=== PATIENT | female | born 1960 | race Caucasian/White ===

== ENCOUNTER → 2018-01-26 | Outpatient (CLI) | payer OTHER ==
--- NOTE | 2018-02-01 08:52 | Diagnostic Imaging Report ---
#[id number] - MGSCRBIL #BILATERAL DIGITAL SCREENING MAMMOGRAM WITH CAD: 01/26/2018 CLINICAL: Routine screening. Comparison is made to exams dated: 03/09/2017 mammogram, 03/09/2017 ultrasound and 02/26/2017 There are scattered fibroglandular elements in both breasts. Current study was also evaluated with a Computer Aided Detection (CAD) system. There are benign calcifications in both breasts. No significant masses, calcifications, or other findings are seen in either breast. There has been no significant interval change. IMPRESSION: BENIGN There is no mammographic evidence of malignancy. A 1 year screening mammogram is recommended. The patient will be notified by letter of the results. Taran pittman/carey:01/31/2018 09:00:13 Customer Service Representative Teller: Essence HILLIARD)([place]), [facility] letter sent: Compared to Prior B9 Mammogram BI-RADS: 2 Benign
== END ==
LOC: MAMMO 09:49
PROVIDERS: ATTEND Internal Medicine
DX: Z12.31 Encounter for screening mammogram for malignant neoplasm of breast (principal)
CPT/HCPCS: 77067

== ENCOUNTER 2018-05-10 19:44 | Emergency (ER) | payer OTHER ==
[~2018-05-10] VITALS: Ht 165.1 cm; Wt 78.5 kg
--- NOTE | 2018-05-10 23:17 | Diagnostic Imaging Report ---
EXAMINATION: Head CT without contrast. HISTORY:Status post fall. COMPARISON:None. TECHNIQUE: Multidetector axial images were obtained from the foramen magnum to the vertex without contrast. The images were reconstructed using brain and bone algorithms. Thin section brain images were reformatted into coronal and sagittal planes. Intravenous contrast: None IMAGE QUALITY: Acceptable. FINDINGS: Skull/scalp: No lytic or blastic. lesions. No surgical changes. Parenchyma: No abnormal density. No acute hemorrhage, mass or acute major vascular territorial infarct. Arteries: No density suggestive of thrombosis. Dural sinuses: No abnormal density suggestive of thrombosis. Ventricles: No hydrocephalus or displacement. Extra-axial spaces: No abnormal density. Brain volume: Moderate generalized cerebral volume loss. Craniocervical junction: No mass, Chiari malformation, or basilar invagination. Sella: No mass. Paranasal/mastoid sinuses: Imaged portions unremarkable. IMPRESSION: No acute intracranial abnormality. Moderate generalized cerebral volume loss, advanced for patient's given age. Signed by: Dr. Roz Faust M.D. on 05/10/2018 11:14 PM
--- NOTE | 2018-05-10 23:21 | Diagnostic Imaging Report ---
History: Status post fall. Comparison studies: None Technique: Axial images were obtained through the cervical region.. Coronal and sagittal images reconstructed from the axial data.. Intravenous contrast: None Findings: Fractures: None. Soft tissue injuries: None. Atlantoaxial articulation: Intact. Alignment: Normal lordosis. No scoliosis. Cervicomedullary junction: No abnormalities. The foramen magnum is patent. Soft tissues: No abnormalities. Vertebrae: No fractures, infection or neoplasm. Degenerative changes: None. IMPRESSION: 1. No acute cervical spine abnormalities. 2. Ligament, spinal cord and or vascular abnormalities cannot be excluded on the basis of this examination. Signed by: Dr. Roz Faust M.D. on 05/10/2018 11:17 PM
--- NOTE | 2018-05-11 | Diagnostic Imaging Report ---
Exam: AP view of the chest and bilateral rib series Indication: Slipped and fell, bilateral ribs and back pain Comparison: None Findings: The lungs are clear. No pleural effusions or pneumothorax. The heart is within normal size limits. No evidence of an acute rib fracture. Impression: No evidence of a rib fracture. Signed by: Dr. Billie Dobbins M.D. on 05/10/2018 11:57 PM
--- NOTE | 2018-05-11 00:02 | Diagnostic Imaging Report ---
EXAM: lumbar spine, 3 views, AP, lateral and coned lateral view INDICATION: Fall, back pain COMPARISON: None FINDINGS: BONES: Five lumbar-type vertebral bodies. The alignment is within normal limits. No acute displaced fractures. No lytic or blastic lesions. DISCS: The disc-spaces are well-maintained. JOINTS: The facet joints and sacroiliac joints are unremarkable. SOFT TISSUES: Unremarkable IMPRESSION: No acute lumbar spine radiographic findings. Signed by: Dr. Billie Dobbins M.D. on 05/10/2018 11:59 PM
--- NOTE | 2018-05-11 00:03 | Diagnostic Imaging Report ---
EXAM: THORACIC SPINE 2VW, AP and lateral DATE: 05/10/2018 9:19 PM Time stamp on exam: 2312 hours INDICATION: Fall, back pain COMPARISON: None FINDINGS: BONES: The alignment is within normal limits. No acute displaced fractures. No lytic or blastic lesions. DISCS: The disc-spaces are well-maintained. JOINTS: The facet joints are unremarkable. SOFT TISSUES: Unremarkable IMPRESSION: No acute thoracic spine radiographic findings. Signed by: Dr. Billie Dobbins M.D. on 05/11/2018 12:00 AM
[2018-05-11 00:21] VITALS: BP 113/71
== END 2018-05-11 00:30 | disposition home or self-care (01) ==
LOC: ER 19:44
DX: S00.83XA Contusion of other part of head, initial encounter (principal); R51 Headache; S30.1XXA Contusion of abdominal wall, initial encounter; S30.0XXA Contusion of lower back and pelvis, initial encounter; S20.221A Contusion of right back wall of thorax, initial encounter; S16.1XXA Strain of muscle, fascia and tendon at neck level, initial encounter; S39.012A Strain of muscle, fascia and tendon of lower back, initial encounter; W01.0XXA Fall on same level from slipping, tripping and stumbling without subsequent striking against object, initial encounter; Y92.008 Other place in unspecified non-institutional (private) residence as the place of occurrence of the external cause
CPT/HCPCS: 70450; 71111; 72070; 72100; 72125; 99283

== ENCOUNTER → 2018-08-17 | Day surgery (SDC) | payer OTHER ==
[~2018-08-17] VITALS: Ht 165.1 cm; Wt 83.5 kg
[~2018-08-17] MED LIST: FENTANYL CITRATE/PF 100MCG/2 ML INJ ONE; MIDAZOLAM HCL 2 MG/2 ML VIAL ONE; PROPOFOL IV EMULSION 10 MG/ML 50 ML VIAL ONE; SIMPLY SALINE; [UNRECOGNIZED DRUG - OTHER] TOP
--- OUTSIDE RECORDS SUMMARY | 2018-08-17 07:02 | XMS REPORT | Clinical Summary ---
Author Author [facility] Address Unknown Phone Unavailable Care Team Providers Care Practice Director Name Role Phone Asked, No Pcp PCP Unavailable Allergies Active Allergy Reactions Severity Noted Date Comments Caffeine Other (See Comments) 02/23/2017 CAUSES UTI Histabid Other (See Comments) 02/23/2017 "TURN GREEN" Auewjdhs-Vjivqbxszi-Synoz Other (See Comments) 02/23/2017 REDNESS IN EYES yxin Current Medications Prescription Sig. Disp. Refills Start End Date Status Date phentermine 37.5 MG Take 37.5 mg by mouth Active capsule every morning. acyclovir (ZOVIRAX) 400 Take 400 mg by mouth Active MG tablet every 4 (four) hours while awake. FOLIC Take by mouth. Active ACID/MULTIVIT-MIN/LUTEIN (CENTRUM SILVER ORAL) ASCORBATE CALCIUM Take by mouth. Active (VITAMIN C ORAL) SENNOSIDES (SENOKOT ORAL) Take by mouth. Active meclizine (ANTIVERT) 25 Take 1 tablet (25 mg 30 tablet 0 06/23/20 07/23/20 mg tablet total) by mouth 3 (three) 18 18 times a day as needed for dizziness for up to 30 days. Active Problems No known active problems Encounters Date Type Specialty Care Team Description 06/23/2018 Emergency Emergency Medicine Oswaldo Diaz Vertigo (Primary Dx); - MD Fabricio Dizziness 06/24/2018 06/23/2018 Procedure Pass Emergency Medicine after 08/16/2017 Family History Medical History Relation Name Comments Colon cancer Father Relation Name Status Comments Father Mother Alive SPASTIC COLON Social History Tobacco Use Types Packs/Day Years Used Date Former Smoker Smokeless Tobacco: Never Used Comments: QUIT 09/2011 Alcohol Use Drinks/Week oz/Week Comments Yes RARE Sex Assigned at Date Recorded Not on file Last Filed Vital Signs Vital Sign Reading Time Taken Blood Pressure 127/58 06/24/2018 12:56 AM CDT Pulse 87 06/24/2018 12:56 AM CDT Temperature 36.8 C (98.2 F) 06/23/2018 4:45 PM CDT Respiratory Rate 16 06/24/2018 12:56 AM CDT Oxygen Saturation 95% 06/24/2018 12:56 AM CDT Inhaled Oxygen - - Concentration Weight - - Height 165.1 cm (5' 5") 06/23/2018 4:45 PM CDT Body Mass Index - - Plan of Treatment Health Maintenance Due Date Last Done Comments COLON CANCER SCREENING 2011 SHINGRIX VACCINE (#1) 2011 INFLUENZA VACCINE 05/17/2018 BREAST CANCER SCREENING 03/04/2019 03/04/2017 CERVICAL CANCER SCREENING 02/24/2020 02/23/2017 Procedures Procedure Name Priority Date/Time Associated Diagnosis Comments MRI BRAIN WO CONTRAST STAT 06/24/2018 Results for this 12:11 AM CDT procedure are in the results section. CT HEAD WO CONTRAST STAT 06/23/2018 Results for this 6:48 PM CDT procedure are in the results section. URINALYSIS SCREEN AND STAT 06/23/2018 Results for this MICROSCOPY, WITH REFLEX 6:00 PM CDT procedure are in the TO CULTURE results section. GRAM STAIN STAT 06/23/2018 Results for this 6:00 PM CDT procedure are in the results section. URINE CULTURE STAT 06/23/2018 Results for this 6:00 PM CDT procedure are in the results section. ZZESTIMATED GFR STAT 06/23/2018 Results for this 5:30 PM CDT procedure are in the results section. COMPREHENSIVE METABOLIC STAT 06/23/2018 Results for this PANEL 5:30 PM CDT procedure are in the results section. HC COMPLETE BLD COUNT STAT 06/23/2018 Results for this W/AUTO DIFF 5:30 PM CDT procedure are in the results section. ECG ED PRELIMINARY Routine 06/23/2018 Results for this INTERPRETATION 5:13 PM CDT procedure are in the results section. ECG 12-LEAD STAT 06/23/2018 Results for this 4:45 PM CDT procedure are in the results section. after 08/16/2017 Results * MRI Brain Wo Contrast (06/24/2018 12:11 AM) Narrative Performed At EXAMINATION:MRI BRAIN WO CONTRAST [facility] CLINICAL HISTORY:vertigo COMPARISON: CT brain dated 06/23/2018. FINDINGS: Noncontrast MRI of the brain is interpreted. Diffusion imaging demonstrates no abnormal restricted diffusion. The brain is normal in morphology and in signal intensity. No extra-axial collection or mass effect is seen. No hemorrhage is identified. The major vascular flow-voids are preserved. IMPRESSION: No evidence of recent infarct or other acute intracranial abnormality. [id number] Procedure Note Interface, Radiology Results - 06/24/2018 12:18 AM CDT EXAMINATION: MRI BRAIN WO CONTRAST CLINICAL HISTORY: vertigo COMPARISON: CT brain dated 06/23/2018. FINDINGS: Noncontrast MRI of the brain is interpreted. Diffusion imaging demonstrates no abnormal restricted diffusion. The brain is normal in morphology and in signal intensity. No extra-axial collection or mass effect is seen. No hemorrhage is identified. The major vascular flow-voids are preserved. IMPRESSION: No evidence of recent infarct or other acute intracranial abnormality. [id number] Performing Organization Address City/State/Zipcode Phone Number [facility] [address] [place] [address] * CT Head Wo Contrast (06/23/2018 6:48 PM) Narrative Performed At EXAMINATION: CT HEAD WO CONTRAST [facility] CLINICAL HISTORY: MERINO COMPARISON:None. TECHNIQUE: Noncontrast enhanced images of the brain were obtained from the skull base to the vertex. Both soft tissue and bone reconstruction algorithms were performed. CT scans are performed using radiation dose reduction techniques (iterative reconstruction and/or automated exposure control). Technical factors are evaluated and adjusted to ensure appropriate moderation of exposure. Automated dose management technology is applied to adjust radiation exposure while achieving a diagnostic quality image. FINDINGS: Mild age-related brain parenchymal volume loss. Nonspecific hypoattenuation of the supratentorial white matter, likely chronic microangiopathic changes. Mild cerebrovascular calcifications. The brain parenchyma is otherwise unremarkable. The evans-white matter differentiation is preserved. No evidence of acute intra or extra-axial hemorrhage, mass, mass effect or acute territorial infarction. There is no acute hydrocephalus. Basal cisterns are patent. No acute soft tissue hematoma or laceration. No skull fractures or aggressive bony lesions. Paranasal sinuses and mastoid air cells are clear. Orbits are normal. IMPRESSION: No acute intracranial abnormality identified. [facility]-[id number] Procedure Note Interface, Radiology Results - 06/23/2018 6:56 PM CDT EXAMINATION: CT HEAD WO CONTRAST CLINICAL HISTORY: MERINO COMPARISON: None. TECHNIQUE: Noncontrast enhanced images of the brain were obtained from the skull base to the vertex. Both soft tissue and bone reconstruction algorithms were performed. CT scans are performed using radiation dose reduction techniques (iterative reconstruction and/or automated exposure control). Technical factors are evaluated and adjusted to ensure appropriate moderation of exposure. Automated dose management technology is applied to adjust radiation exposure while achieving a diagnostic quality image. FINDINGS: Mild age-related brain parenchymal volume loss. Nonspecific hypoattenuation of the supratentorial white matter, likely chronic microangiopathic changes. Mild cerebrovascular calcifications. The brain parenchyma is otherwise unremarkable. The evans-white matter differentiation is preserved. No evidence of acute intra or extra-axial hemorrhage, mass, mass effect or acute territorial infarction. There is no acute hydrocephalus. Basal cisterns are patent. No acute soft tissue hematoma or laceration. No skull fractures or aggressive bony lesions. Paranasal sinuses and mastoid air cells are clear. Orbits are normal. IMPRESSION: No acute intracranial abnormality identified. [facility]-[id number] Performing Organization Address City/State/Zipcode Phone Number [facility] [address] [place] [address] * Urinalysis screen and microscopy, with reflex to culture (06/23/2018 6:00 PM) Specimen site Clean catch [facility] DEPARTMENT OF PATHOLOGY AND GENOMIC MEDICINE Color, UA Yellow [facility] DEPARTMENT OF PATHOLOGY AND GENOMIC MEDICINE Appearance, UA Clear [facility] DEPARTMENT OF PATHOLOGY AND GENOMIC MEDICINE Specific gravity, UA 1.020 1.001 - 1.035 [facility] DEPARTMENT OF PATHOLOGY AND GENOMIC MEDICINE pH, UA 5.0 5.0 - 8.5 [facility] DEPARTMENT OF PATHOLOGY AND GENOMIC MEDICINE Protein, UA Negative Negative [facility] DEPARTMENT OF PATHOLOGY AND GENOMIC MEDICINE Glucose, UA Negative Negative [facility] DEPARTMENT OF PATHOLOGY AND GENOMIC MEDICINE Ketones, UA Negative Negative [facility] DEPARTMENT OF PATHOLOGY AND GENOMIC MEDICINE Bilirubin, UA Negative Negative [facility] DEPARTMENT OF PATHOLOGY AND GENOMIC MEDICINE Blood, UA Negative Negative [facility] DEPARTMENT OF PATHOLOGY AND GENOMIC MEDICINE Nitrite, UA Negative Negative [facility] DEPARTMENT OF PATHOLOGY AND GENOMIC MEDICINE Urobilinogen, UA Negative <2.0 [facility] DEPARTMENT OF PATHOLOGY AND GENOMIC MEDICINE Leukocyte esterase, UA Trace (A) Negative [facility] DEPARTMENT OF PATHOLOGY AND GENOMIC MEDICINE Epithelial cells, UA Many /HPF [facility] DEPARTMENT OF PATHOLOGY AND GENOMIC MEDICINE WBC, UA 0-5 0 - 4 /HPF [facility] DEPARTMENT OF PATHOLOGY AND GENOMIC MEDICINE RBC, UA 0-5 0 - 5 /HPF [facility] DEPARTMENT OF PATHOLOGY AND GENOMIC MEDICINE Bacteria, UA Trace None seen [facility] DEPARTMENT OF PATHOLOGY AND GENOMIC MEDICINE Yeast, UA None seen [facility] DEPARTMENT OF PATHOLOGY AND GENOMIC MEDICINE Yeast with pseudohyphae, None seen [facility] DEPARTMENT OF UA PATHOLOGY AND GENOMIC MEDICINE Specimen Urine Performing Organization Address City/State/Zipcode Phone Number [facility] DEPARTMENT [address] [place] [address] PATHOLOGY AND GENOMIC MEDICINE * Gram stain (06/23/2018 6:00 PM) Gram stain result No WBC's [facility] DEPARTMENT OF Many Gram positive rods PATHOLOGY AND Comment: GENOMIC MEDICINE Specimen Information Specimen Source: Urine Specimen Site: Clean catch Specimen Urine Performing Organization Address City/State/Zipcode Phone Number [facility] DEPARTMENT OF [address] [place] [phone] PATHOLOGY AND GENOMIC MEDICINE * Urine culture (06/23/2018 6:00 PM) Urine culture isolate Mixed Gram positive paul [facility] DEPARTMENT OF 10-2 cfu/ml PATHOLOGY AND (A) GENOMIC MEDICINE Comment: Specimen Information Specimen Source: Urine Specimen Site: Clean catch Urine culture isolate Gram negative rods [facility] DEPARTMENT OF 10-1 cfu/ml PATHOLOGY AND (A) GENOMIC MEDICINE Specimen Urine Performing Organization Address City/[facility]/Zipcode Phone Number [facility] DEPARTMENT OF [address] [place] [phone] PATHOLOGY AND GENOMIC MEDICINE * Estimated GFR (06/23/2018 5:30 PM) GFR Non Af Amer >90 mL/min/1.73 m2 [facility] DEPARTMENT OF PATHOLOGY AND GENOMIC MEDICINE GFR Af Amer >90 mL/min/1.73 m2 [facility] DEPARTMENT OF Comment: PATHOLOGY AND Chronic kidney disease: <60 GENOMIC MEDICINE mL/min/1.73m2 Kidney failure: <15 mL/min/1.73m2 The estimated GFR is calculated from the IDMS-traceable Modification of Diet in Renal Disease Equation. The accuracy of the calculation is poor when the creatinine is normal. Calculated values >90 mL/min/1.73m2 are not reported. This equation has not been validated in children (<18 years), women, the elderly (>70 years), or ethnic groups other than Caucasians and Americans. Specimen Plasma specimen Performing Organization Address City/[facility]/Zipcode Phone Number [facility] [address] [place] [address] PATHOLOGY [facility] * CBC with platelet and differential (06/23/2018 5:30 PM) WBC 4.56 4.50 - 11.00 k/uL [facility] DEPARTMENT OF PATHOLOGY AND GENOMIC MEDICINE RBC 4.35 4.20 - 5.50 m/uL [facility] OF PATHOLOGY AND GENOMIC MEDICINE HGB 13.3 12.0 - 16.0 g/dL [facility] DEPARTMENT OF PATHOLOGY AND GENOMIC MEDICINE HCT 39.2 37.0 - 47.0 % [facility] DEPARTMENT OF PATHOLOGY AND GENOMIC MEDICINE MCV 90.1 82.0 - 100.0 fL [facility] DEPARTMENT OF PATHOLOGY AND GENOMIC MEDICINE MCH 30.6 27.0 - 34.0 pg [facility] DEPARTMENT OF PATHOLOGY AND GENOMIC MEDICINE MCHC 33.9 31.0 - 37.0 g/dL [facility] DEPARTMENT OF PATHOLOGY AND GENOMIC MEDICINE RDW - SD 39.4 37.0 - 55.0 fL [facility] DEPARTMENT OF PATHOLOGY AND GENOMIC MEDICINE MPV 10.7 8.8 - 13.2 fL [facility] DEPARTMENT OF PATHOLOGY AND GENOMIC MEDICINE Platelet count 175 150 - 400 k/uL [facility] DEPARTMENT OF PATHOLOGY AND GENOMIC MEDICINE Nucleated RBC 0.00 /100 WBC [facility] DEPARTMENT OF PATHOLOGY AND GENOMIC MEDICINE Neutrophils 59.9 39.0 - 69.0 % [facility] DEPARTMENT OF PATHOLOGY AND GENOMIC MEDICINE Lymphocytes 30.7 25.0 - 45.0 % [facility] DEPARTMENT OF PATHOLOGY AND GENOMIC MEDICINE Monocytes 6.1 0.0 - 10.0 % [facility] DEPARTMENT OF PATHOLOGY AND GENOMIC MEDICINE Eosinophils 2.2 0.0 - 5.0 % [facility] OF PATHOLOGY AND GENOMIC MEDICINE Basophils 0.7 0.0 - 1.0 % [facility] OF PATHOLOGY AND GENOMIC MEDICINE Specimen Blood Performing Organization Address City/[facility]/Zipcode Phone Number [facility] [address] [place] [address] PATHOLOGY [facility] [employer] MEDICINE * Comprehensive metabolic panel (06/23/2018 5:30 PM) Sodium 137 135 - 148 mEq/L [facility] PATHOLOGY AND GENOMIC MEDICINE Potassium 4.5 3.5 - 5.0 mEq/L [facility] DEPARTMENT OF PATHOLOGY AND GENOMIC MEDICINE Chloride 101 98 - 112 mEq/L [facility] DEPARTMENT OF PATHOLOGY AND GENOMIC MEDICINE CO2 26 24 - 31 mEq/L [facility] DEPARTMENT OF PATHOLOGY AND GENOMIC MEDICINE Anion gap 10@ANIO 7 - 15 mEq/L [facility] DEPARTMENT OF PATHOLOGY AND GENOMIC MEDICINE BUN 19 6 - 20 mg/dL [facility] DEPARTMENT OF PATHOLOGY AND GENOMIC MEDICINE Creatinine 0.6 0.5 - 0.9 mg/dL [facility] DEPARTMENT OF PATHOLOGY AND GENOMIC MEDICINE Glucose 105 (H) 65 - 99 mg/dL [facility] DEPARTMENT OF PATHOLOGY AND GENOMIC MEDICINE Calcium 9.1 8.3 - 10.2 mg/dL [facility] DEPARTMENT OF PATHOLOGY AND GENOMIC MEDICINE Protein 7.5 6.3 - 8.3 g/dL [facility] DEPARTMENT OF Comment: PATHOLOGY AND GENOMIC MEDICINE 4.6-7.0 g/dL 1 week 4.4-7.6 g/dL 7 months-1year 5.1-7.3 g/dL 1-2 years5.6-7 .5 g/dL >3 years6.0-8 .0 g/dL 18-150 6.3-8.3 g/dL Albumin 4.5 3.5 - 5.0 g/dL [facility] DEPARTMENT OF PATHOLOGY AND GENOMIC MEDICINE A/G ratio 1.5 0.7 - 3.8 [facility] DEPARTMENT OF PATHOLOGY AND GENOMIC MEDICINE Alkaline phosphatase 128 (H) 35 - 104 U/L [facility] DEPARTMENT OF PATHOLOGY AND GENOMIC MEDICINE AST 23 10 - 35 U/L [facility] DEPARTMENT OF PATHOLOGY AND GENOMIC MEDICINE ALT 26 5 - 50 U/L [facility] DEPARTMENT OF PATHOLOGY AND GENOMIC MEDICINE Total bilirubin 0.3 0.0 - 1.2 mg/dL [facility] DEPARTMENT OF PATHOLOGY AND GENOMIC MEDICINE Specimen Plasma specimen Performing Organization Address City/State/Zipcode Phone Number [facility] [place] [address] [place] [address] PATHOLOGY AND GENOMIC [facility] * ECG ED Preliminary Interpretation - NOT AN ORDER (06/23/2018 5:13 PM) Narrative Performed At Oswaldo Diaz MD 06/24/20181:56 PM ECG ED Preliminary Interpretation - Not an Order Performed by: OSWALDO DIAZ Authorized by: OSWALDO DIAZ ECG reviewed by ED Physician in the absence of a yard worker: yes Interpretation: Interpretation: normal Rate: ECG rate:77 ECG rate assessment: normal Rhythm: Rhythm: sinus rhythm Ectopy: Ectopy: none QRS: QRS axis:Normal Conduction: Conduction: normal ST segments: ST segments:Normal T waves: T waves: normal * ECG 12 lead (06/23/2018 4:45 PM) Ventricular rate 77 [facility] Atrial rate 77 [facility] NV interval 172 [facility] QRSD interval 86 [facility] QT interval 382 [facility] QTC interval 432 [facility] P axis 1 36 [facility] QRS axis 1 31 [facility] T wave axis 50 [facility] EKG impression Normal sinus rhythm-Normal [facility] ECG-No previous ECGs available- Performing Organization Address City/State/Zipcode Phone Number [facility] M[facility] [address] [place] [address] after 08/16/2017 Insurance Payer Benefit Subscriber ID Type Phone Address Plan / Group [employer] xxxxxxxxxx Exchange [employer] [place] [address]
--- OUTSIDE RECORDS SUMMARY | 2018-08-17 07:02 | XMS REPORT | Continuity of Care Document ---
Author Author [facility] Organization Interface Address Unknown Phone Unavailable Problems Problem Status Onset Date Classification Date Reported Comments Source Z12.31 - ENCNTR SCREEN MAMMOGRAM FOR MA Active 02/24/2017 [facility] BILATERAL KNEE PAIN Active 10/17/2000 [facility] RIGHT KNEE Active [facility] TMM SURGERY Active [facility] M25.561 Active [facility] M23.304 Active [facility] Medications Medication Details Route Status Patient Instructions Ordering Provider Order Date Source Allergies, Adverse Reactions, Alerts Substance Category Reaction Severity Reaction type Status Date Reported Comments Source Immunizations Immunization Date Given Site Status Last Updated Comments Source Results Order Name Results Value Reference Range Date Interpretation Comments Source Breast Complete Anton US Breast Complete Anton US - BREAST COMPLETE ANTON US ULTRASOUND OF LEFT BREAST: 03/09/2017 CLINICAL: HISTORY: 56 yo female with focal aymmetry questioned in the LEFT breast on screening mammogram 02/26/17. No personal or family history of breast cancer. 2D digital mammographic images and 3D digital tomosynthesis images were obtained in the CC and MLO projections. Comparison is made to exams dated: 02/26/2017 mammogram, 10/23/2015 mammogram, 10/23/2015 ultrasound, 10/06/2015 mammogram, 10/14/2014 mammogram and 10/04/2013 mammogram - [facility]. RIGHT BREAST FINDINGS: The entire right breast was evaluated including all four quadrants, axillary tail, subareolar region and axilla. Subcentimeter cyst noted at 9:00. No abnormalities that would be suspicious for malignancy were identified. No axillary adenopathy. LEFT BREAST FINDINGS: The entire left breast was evaluated including all four quadrants, axillary tail, subareolar region and axilla. No abnormalities that would be suspicious for malignancy were identified. No axillary adenopathy. IMPRESSION: BENIGN 1. ADDITIONAL IMAGING READ IN CONJUNCTION WITH THE SCREENING MAMMOGRAM 02/26/17 SHOWED NO DEFINITE RADIOGRAPHIC OR SONOGRAPHIC EVIDENCE TO SUGGEST MALIGNANCY IN EITHER BREAST. NO SIGNIFICANT CHANGE. RECOMMENDATION: A ROUTINE SCREENING MAMMOGRAM IN ONE YEAR. The technologist discussed the findings and recommendations with the patient under my direction. Cora Williamson M.D. sg/:03/09/2017 14:50:10 Telex Operator: Lauren Kaminski, [facility] This exam was dictated and interpreted by [id number] for [facility]. letter sent: Bilateral Benign Ultrasound BI-RADS: 2 Benign 03/09/2017 - - Read by: Cora Williamson MD Dictated Date/time: 03/09/17 14:50 Electronically Signed by: Cora Wliliamson MD 03/09/17 14:50 FINAL REPORT [facility] Breast Mammo Diag UNI w berto incl CAD MA Breast Mammo Diag UNI w berto incl CAD MA - BREAST MAMMO DIAG UNI W BERTO INCL CAD MA/L UNILATERAL LEFT DIGITAL DIAGNOSTIC MAMMOGRAM 3D/2D WITH CAD: 03/09/2017 CLINICAL: HISTORY: 56 yo female with focal aymmetry questioned in the LEFT breast on screening mammogram 02/26/17. No personal or family history of breast cancer. 2D digital mammographic images and 3D digital tomosynthesis images were obtained in the CC and MLO projections. Current study was evaluated with a Computer Aided Detection (CAD) system. Comparison is made to exams dated: 02/26/2017 mammogram, 10/23/2015 mammogram, 10/23/2015 ultrasound, 10/06/2015 mammogram, 10/14/2014 mammogram and 10/04/2013 mammogram - [facility]. The tissue of the left breast is heterogeneously dense, which could obscure detection of small masses. True lateral berto view and spot compression berto view shows the density to partially efface and to have a more comparable appearance to the prior studies. No significant masses, calcifications, or other findings are seen in the breast. IMPRESSION: INCOMPLETE: NEEDS ADDITIONAL IMAGING EVALUATION PLEASE SEE SAME DAY ULTRASOUND REPORT. Cora Williamson M.D. sg/:03/09/2017 14:50:10 Telex Operator: Lauren Kaminski, [facility] This exam was dictated and interpreted by [id number] for [facility]. letter sent: Bilateral Benign Mammogram BI-RADS: 0 Indeterminate 03/09/2017 - - Read by: Cora Williamson MD Dictated Date/time: 03/09/17 14:50 Electronically Signed by: Cora Williamson MD 03/09/17 14:50 FINAL REPORT [facility] Breast Mammo Scrn ANTON incl CAD MA Breast Mammo Scrn ANTON incl CAD MA - BREAST MAMMO SCRN ANTON INCL CAD MA BILATERAL DIGITAL SCREENING MAMMOGRAM WITH CAD: 02/26/2017 CLINICAL: Routine. Patient reported breast pain and weight loss since last exam (10 to 15 pounds). No personal or known family history of breast cancer. Current study was evaluated with a Computer Aided Detection (CAD) system. Comparison is made to exams dated: 10/23/2015 mammogram, 10/23/2015 ultrasound, 10/06/2015 mammogram, 10/14/2014 mammogram, 10/04/2013 mammogram - [facility] and 03/31/2009 mammogram - [place] breast diagnostic. The tissue of both breasts is heterogeneously dense, which could obscure detection of small masses. A focal asymmetry is projected over the upper LEFT breast on the MLO view. No significant masses, calcifications, or other findings are seen in either breast. IMPRESSION: INCOMPLETE: NEEDS ADDITIONAL IMAGING EVALUATION 1. RECOMMEND A LEFT ML VIEW WITH BERTO AND A LEFT BERTO ROUND PADDLE SPOT COMPRESSION MLO VIEW. 2. ALSO, DUE TO REPORTED BREAST PAIN AT TIME OF SCREENING MAMMOGRAM AND DENSE TISSUE, RECOMMEND A BILATERAL BREAST ULTRASOUND. Cora Williamson M.D. sg/:02/28/2017 15:58:30 Telex Operator: Pascale Jay, [facility] This exam was dictated and interpreted by [id number] for [facility]. letter sent: Additional Imaging Mammogram BI-RADS: 0 Indeterminate 02/26/2017 - - Read by: Cora Williamson MD Dictated Date/time: 02/28/17 15:58 Electronically Signed by: Cora Williamson MD 02/28/17 15:58 FINAL REPORT [facility] Knee 4+ views bilat DX Knee 4+ views bilat DX EXAM: Knee 4+ views bilat HISTORY: anton knee pain COMPARISON: None Bilateral knee series demonstrates mild medial tibiofemoral joint space narrowing bilaterally. There are small bilateral joint effusions. Small patellofemoral osteophytes are noted bilaterally. The sunrise view demonstrates irregularity of the posterior medial facet of the patella bilaterally, worse on the left. Alignment is normal. There is no fracture. IMPRESSION: Degenerative change as above. 01/06/2015 - - Read by: Ramez Barrera MD Dictated Date/time: 01/06/15 14:00 Electronically Signed by: Ramez Barrera MD 01/06/15 14:01 FINAL REPORT [facility] Vital Signs Vital Sign Value Date Comments Source Encounters Location Location Details Encounter Type Encounter Number Reason For Visit Attending Provider ADM Date DC Date Status Source [facility] Outpatient [id number] Hesham [place]over 01/06/2015 01/07/2015 [facility] [place] [facility] Patients [id number] Hesham [place] 12/22/2015 01/21/2016 [facility] [place] [facility] [place] [facility] Patients [id number] Hesham [place] 02/17/2016 03/18/2016 [facility] [place] [facility] [place] [facility] [id number] Hesham Lik[place] 03/23/2016 04/22/2016 [facility] [place] [facility] [place] [facility] [id number] Hesham Likover 04/27/2016 05/27/2016 [facility] [place] [facility] [place] [facility] [id number] Hesham Lik[place] 06/01/2016 07/01/2016 [facility] [place] [facility] [place] [facility] [id number] Hesham [place] 07/06/2016 [facility] [place] [facility] [id number] Oswaldo Sanchez 02/26/2017 02/27/2017 [facility] [place] [facility] [id number] Oswaldo Sanchez 03/09/2017 03/10/2017 [facility] Procedure Code Date Perfomer Comments Source
[2018-08-17 07:10] VITALS: BP 121/78
[2018-08-17 09:53] VITALS: BP 118/65
[2018-08-17 09:55] VITALS: BP 104/73
[2018-08-17 10:00] VITALS: BP 109/63
[2018-08-17 10:30] VITALS: BP_SYST 106; BP_DIAS 71; BP_DIAS 72
== END | disposition home or self-care (01) ==
LOC: CATH LAB 06:58
PROVIDERS: ATTEND Internal Medicine
DX: I34.0 Nonrheumatic mitral (valve) insufficiency (principal); R94.31 Abnormal electrocardiogram [ECG] [EKG]; R07.9 Chest pain, unspecified
CPT/HCPCS: 93312; 93320; 93325; J2250

== ENCOUNTER → 2019-02-16 | Outpatient (CLI) | payer BC ==
[~2019-02-16] MED LIST changes: -FENTANYL CITRATE/PF 100MCG/2 ML INJ ONE; -MIDAZOLAM HCL 2 MG/2 ML VIAL ONE; -PROPOFOL IV EMULSION 10 MG/ML 50 ML VIAL ONE
--- NOTE | 2019-02-20 12:53 | Diagnostic Imaging Report ---
#[id number] - MGSCRBIL #BILATERAL DIGITAL SCREENING MAMMOGRAM WITH CAD: 02/16/2019 CLINICAL: Routine screening. Comparison is made to exams dated: 01/26/2018 mammogram - [facility], The tissue of both breasts is heterogeneously dense. This may lower the sensitivity of mammography. Current study was also evaluated with a Computer Aided Detection (CAD) system. There are benign calcifications in both breasts. No significant masses, calcifications, or other findings are seen in either breast. There has been no significant interval change. IMPRESSION: BENIGN There is no mammographic evidence of malignancy. A 1 year screening mammogram is recommended. The patient will be notified by letter of the results. GALILEA PETERSON M.D., mc/carey:02/20/2019 11:36:14 Supervisor [employer] Vehicle: Essence HILLIARD)([place]), [facility] letter sent: Normal Exam Mammogram BI-RADS: 2 Benign
== END ==
LOC: MAMMO 10:25
PROVIDERS: ATTEND Internal Medicine
DX: Z12.31 Encounter for screening mammogram for malignant neoplasm of breast (principal)
CPT/HCPCS: 77067

== ENCOUNTER → 2020-06-03 | Outpatient (CLI) | payer BC ==
--- NOTE | 2020-06-04 13:40 | Diagnostic Imaging Report ---
#[id number] - MGSCRBIL #BILATERAL DIGITAL SCREENING MAMMOGRAM WITH CAD: 06/03/2020 CLINICAL: Routine screening. Comparison is made to exams dated: 02/16/2019 mammogram and 01/26/2018 mammogram - [facility]. The tissue of both breasts is heterogeneously dense. This may lower the sensitivity of mammography. Current study was also evaluated with a Computer Aided Detection (CAD) system. There are benign calcifications in both breasts. There also is a benign intramammary node in the right breast. Additionally there are benign lymph nodes in the right breast. No significant masses, calcifications, or other findings are seen in either breast. There has been no significant interval change. IMPRESSION: BENIGN There is no mammographic evidence of malignancy. A 1 year screening mammogram is recommended. The patient will be notified by letter of the results. VISHNU carranza/carey:06/04/2020 11:41:34 Lumber Checker: Essence CRUZ(R)(M), [facility] letter sent: Compared to Prior B9 Mammogram BI-RADS: 2 Benign
== END ==
LOC: MAMMO 14:19
PROVIDERS: ATTEND Internal Medicine
DX: Z12.31 Encounter for screening mammogram for malignant neoplasm of breast (principal)
CPT/HCPCS: 77067

== ENCOUNTER → 2021-07-07 | Outpatient (CLI) | payer BC | LOC: MAMMO 10:19 | PROVIDERS: ATTEND Internal Medicine | DX: Z12.31 Encounter for screening mammogram for malignant neoplasm of breast (principal) | CPT/HCPCS: 77067 ==

== ENCOUNTER → 2022-07-08 | Outpatient (CLI) | payer BC | LOC: MAMMO 12:58 | PROVIDERS: ATTEND Internal Medicine | DX: Z12.31 Encounter for screening mammogram for malignant neoplasm of breast (principal) | CPT/HCPCS: 77067 ==